=== PATIENT | male | born 1960 | race Caucasian/White ===

== ENCOUNTER 2016-09-19 08:02 | Emergency (ER) | payer OTHER ==
--- NOTE | ~2016-09-19 | CR126 ---
[facility]. [facility] A Service of [facility] RADIOLOGY TEXT RESULTS PATIENT: JULES BALL LOCATION: SED : 64 UNIT #: [id number] AGE: [address]: Alexis Mcnally MD SEX: M ORDER DR: [id number] [place] [id number] E MR#: [id number] Acc #: [id number] NAME: JULES BALL : 1960 SEX: M STUDY DATE/TIME: 09/19/2016 8:19 UNIT: SED ROOM: STUDY DESCRIPTION: CR Foot Complete Min 3 View Lt Attending Physician: Alexis Mcnally M.D. Ordering Physician: Alexis Mcnally M.D. MEDICAL IMAGING REPORT This report is preliminary unless electronic signature is present. EXAM Left foot series 09/19/2016 HISTORY Trauma. Fell on ladder Thursday. Pain left leg and foot. Knots in leg. Second toe fusion. Fifth toe bone removed. FINDINGS AP, lateral and oblique radiographs of the left foot are presented. No comparisons. There appears to be bony fusion across the second digit interphalangeal joints. There is an orthopedic screw obliquely through the head of the second metatarsal bone. There is partial absence of the distal fifth metatarsal bone. The proximal phalanx of the fifth digit is approximately 5 mm distal to the remaining shaft of the fifth metatarsal bone, and it is aligned to the medial aspect of the fifth metatarsal bone by approximately one-half shaft width. This may represent the normal postoperative alignment for the patient. I have no prior studies for comparison. Traumatic malalignment related to the patient's injury not excluded. Correlate with mechanism of injury, clinical examination and location of patient pain. I see no fracture. Remaining joint spaces are intact. Question soft tissue swelling dorsal aspect of the foot. No soft tissue defect, subcutaneous air or nonorthopedic radiodense foreign body. Dictated by... Garrett Cano M.D. THIS IS AN ELECTRONICALLY VERIFIED REPORT Garrett Cano M.D. at 09/24/2016 10:14 AM ANIYAH/laney [facility]. [facility] A Service of [facility] & [facility] RADIOLOGY TEXT RESULTS PATIENT: JULES BALL LOCATION: SED : [birth year] UNIT #: [id number] AGE: [address]: Alexis Mcnally MD SEX: M ORDER DR: TD: 09/19/2016 12:03 JOB #: [id number] MEDICAL IMAGING REPORT Page 1 of 1
--- NOTE | ~2016-09-19 | CR252 ---
[facility] A Service of [facility] RADIOLOGY TEXT RESULTS PATIENT: JULES BALL LOCATION: SED : 64 UNIT #: [id number] AGE: [address]: Alexis Mcnally MD SEX: M ORDER DR: [id number] [place] [id number] E MR#: [id number] Acc #: [id number] NAME: JULES BALL : 1960 SEX: M STUDY DATE/TIME: 09/19/2016 8:19 UNIT: SED ROOM: STUDY DESCRIPTION: CR Tibia and Fibula 2 Views Lt Attending Physician: Alexis Mcnally M.D. Ordering Physician: Alexis Mcnally M.D. MEDICAL IMAGING REPORT This report is preliminary unless electronic signature is present. EXAM Right tibia and fibula series, 09/19/2016. HISTORY Trauma. Fell on ladder. Pain, left leg and foot, knots in legs since Thursday. FINDINGS AP and lateral radiographs of the tibia and fibula are presented. No traumatic fracture or malalignment. Knee and ankle joints appear intact. There are soft tissue calcifications. Varicose veins, medial aspect of foreleg. Vascular calcifications. No soft tissue defect, subcutaneous air, or radiodense foreign body. Dictated by... Garrett Cano M.D. THIS IS AN ELECTRONICALLY VERIFIED REPORT Garrett Cano M.D. at 09/24/2016 10:14 AM ANIYAH/kashif TD: 09/19/2016 11:18 JOB #: [id number] MEDICAL IMAGING REPORT Page 1 of 1
--- NOTE | ~2016-09-19 | US85 ---
[facility] [email or web address] A Service of [facility] RADIOLOGY TEXT RESULTS PATIENT: JULES BALL LOCATION: SED : 64 UNIT #: [id number] AGE: [address]: Alexis Mcnally MD SEX: M ORDER DR: [id number] [place] [address] [id number] E MR#: [id number] Acc #: [id number] NAME: JULES BALL : 1960 SEX: M STUDY DATE/TIME: 09/19/2016 9:50 UNIT: SED ROOM: STUDY DESCRIPTION: [facility] Attending Physician: Alexis Mcnally M.D. Ordering Physician: Alexis Mcnally M.D. MEDICAL IMAGING REPORT This report is preliminary unless electronic signature is present. EXAM Left lower extremity venous ultrasound HISTORY Fall 5 days ago. No previous history of DVT. Left leg and foot pain. TECHNIQUE Venous ultrasound examination of the left lower extremity was performed using grayscale, spectral Doppler and color flow Doppler imaging. FINDINGS The examination is negative. There is no evidence of left lower extremity deep venous thrombus from the groin to the lower calf. Visualized greater saphenous vein is also patent. IMPRESSION Negative examination. No evidence of left lower extremity deep venous thrombosis. Dictated by... Garrett Cano M.D. THIS IS AN ELECTRONICALLY VERIFIED REPORT Garrett Cano M.D. at 09/24/2016 10:14 AM ANIYAH/laney TD: 09/19/2016 12:33 JOB #: [id number] [facility] [email or web address]]. [facility] A Service of [facility] RADIOLOGY TEXT RESULTS PATIENT: JULES BALL LOCATION: SED : [birth year] UNIT #: [id number] AGE: [address]: Alexis Mcnally MD SEX: M ORDER DR: MEDICAL IMAGING REPORT Page 1 of 1
== END 2016-09-19 11:17 | disposition home or self-care (01) ==
LOC: SED 08:02
DX: S80.12XA Contusion of left lower leg, initial encounter (principal); F17.200 Nicotine dependence, unspecified, uncomplicated; W19.XXXA Unspecified fall, initial encounter; Y92.009 Unspecified place in unspecified non-institutional (private) residence as the place of occurrence of the external cause
CPT/HCPCS: 73590; 73630; 93971; 99284